=== PATIENT | female | born 1995 | race Two or more races ===

== ENCOUNTER 2018-02-27 15:22 | Emergency (ER) | payer OTHER ==
--- NOTE | 2018-02-27 15:43 | PDOC ---
Rapid Medical Evaluation Time Seen by Provider: 02/27/18 15:41 Medical Evaluation: Allergies Allergy/AdvReac Type Severity Reaction Status Date / Time No Known Allergies Allergy Verified 02/27/18 15:40 I have performed a brief in-person evaluation of this patient. The patient presents with a chief complaint of: sharp epigastric pain since last night Pertinent physical exam findings: pain with palpation of epigastric region with vomiting today I have ordered the following: hcg The patient will proceed to the ED for further evaluation.
[2018-02-27 15:44] VITALS: BP 114/62; PULSE 78; TEMP 98.3; BMI 36.9
== END 2018-02-27 16:35 | disposition left against medical advice (07) ==
LOC: JER 15:22
DX: R10.13 Epigastric pain (principal)
CPT/HCPCS: 99281-25